=== PATIENT | male | born 1955 | race Caucasian/White ===

== ENCOUNTER 2023-03-07 14:13 | Emergency (ER) | payer MEDICARE, OTHER ==
[2023-03-07] MEDS ORDERED: Lidocaine 1% with EPINEPHrine 1:100,000 20 ML MDV INJECT ONE (14:45)
[2023-03-07] MEDS ORDERED: Bacitracin Oint 1 GM U/D Packet TOP ONE (15:15)
== END 2023-03-07 15:20 | disposition home or self-care (01) ==
LOC: DL.ED 14:13
DX: S81.811A Laceration without foreign body, right lower leg, initial encounter (principal); E03.9 Hypothyroidism, unspecified; I10 Essential (primary) hypertension; Z79.899 Other long term (current) drug therapy; W01.0XXA Fall on same level from slipping, tripping and stumbling without subsequent striking against object, initial encounter
CPT/HCPCS: 12002; 99283; A9270-GY; J3490